=== PATIENT | female | born 1965 | race African-American/Black ===

== ENCOUNTER 2019-12-15 12:54 | Inpatient (IN) | payer MEDICAID, OTHER ==
[~2019-12-15] VITALS: Ht 172.7 cm; Wt 137.0 kg
[2019-12-15] MEDS ORDERED: ACETAMINOPHEN 325MG TABLET PO ONE (15:45)
[2019-12-15] MEDS ORDERED: SODIUM CHLORIDE 0.9% 1,000 ML IV ONE ×2 (16:15→17:00)
[2019-12-15 16:23] LABS: HEMOGLOBIN. 9.1 g/dL (12.0-16.0); MEAN CORPUSCULAR HEMOGLOBIN 25.3 pg (28.0-32.0); MEAN PLATELET VOLUME 8.3 fl (7.4-10.4); PLATELET 473 x1000/uL (130-400); RED CELL DISTRIBUTION WIDTH 14.3 % (11.6-14.6)
[2019-12-15 16:26] LABS: CHLORIDE 89 mEq/L (98-107)
[2019-12-15 16:29] LABS: PARTIAL THROMBOPLASTIN TIME 27.5 sec (23.4-31.0); PROTHROMBIN TIME 10.4 sec (9.6-11.0)
[2019-12-15] MEDS ORDERED: INS NPH/REG HM 70-30 100 UNITS/ML 10ML VIAL (HUMULIN 70-30) SUBCUT ONE (16:45)
[2019-12-15 17:45] LABS: CLARITY URINE CLOUDY (CLEAR); COLOR URINE YELLOW (YELLOW); KETONES URINE TRACE (NEGATIVE); LEUKOCYTE ESTERASE URINE NEGATIVE (NEGATIVE); NITRITE URINE NEGATIVE (NEGATIVE); OCCULT BLOOD URINE NEGATIVE (NEGATIVE); PROTEIN URINE 3+ (NEGATIVE); SPECIFIC GRAVITY URINE 1.021 (1.005-1.030); UROBILINOGEN URINE 0.2 E.U./dL (0.2-1.0)
[2019-12-15 17:47] LABS: NUCLEATED RED BLOOD CELLS 1 /100 WBC
[2019-12-15 17:49] LABS: PLATELET ESTIMATE SLIGHTLY INCREASED
[2019-12-15] MEDS ORDERED: FLUCONAZOLE 100MG TABLET PO ONE (19:00)
[2019-12-15] MEDS ORDERED: CEFTRIAXONE 1 G PREMIX 50 ML IV ONE (19:00)
[2019-12-15] MEDS ORDERED: FLUCONAZOLE 100MG TABLET PO SCH (20:30)
[2019-12-15] MEDS ORDERED: PIPERACILLIN/TAZOBACTAM 2.25 G in DEXTROSE 5% WATER 50 ML IV SCH (23:45)
[2019-12-15] MEDS ORDERED: VANCOMYCIN 1 G PREMIX 200 ML IV SCH (23:45)
[2019-12-15] MEDS ORDERED: CLINDAMYCIN 600MG PREMIX 50 ML IV ONE (23:45)
[2019-12-15] MEDS ORDERED: CLINDAMYCIN 600 MG in DEXTROSE 5% WATER 50 ML IV ONE (23:45)
[2019-12-15] MEDS ORDERED: PIPERACILLIN/TAZ 2.25G PREMIX 50 ML IV ONE (23:45)
[2019-12-16 00:50] VITALS: BP 139/42
[2019-12-16 04:00] VITALS: BP 115/53
[2019-12-16] MEDS ORDERED: HYDR25TA PO (06:05)
[2019-12-16] MEDS ORDERED: INSU100I24 SUBCUT (06:05)
[2019-12-16] MEDS ORDERED: ASPI-1497 PO (06:05)
[2019-12-16] MEDS ORDERED: ATOR20TA65 PO (06:05)
[2019-12-16] MEDS ORDERED: INSU100I32 SUBCUT (06:05)
[2019-12-16] MEDS ORDERED: LISI40TA4 PO (06:05)
[2019-12-16] MEDS ORDERED: ENOXAPARIN 40MG/0.4ML SYR SUBCUT SCH (08:30)
[2019-12-16] MEDS ORDERED: ACETAMINOPHEN 325MG TABLET PO PRN (08:30)
[2019-12-16] MEDS ORDERED: ASPIRIN 81MG EC TABLET PO SCH (08:30)
[2019-12-16] MEDS ORDERED: PIPERACILLIN/TAZ 3.375G PREMIX 50 ML IV SCH (08:30)
[2019-12-16] MEDS ORDERED: SODIUM CHLORIDE 0.9% 1,000 ML IV SCH (08:30)
[2019-12-16] MEDS ORDERED: DEXTROSE 50% WATER 50ML SYRINGE IV PRN (08:45)
[2019-12-16] MEDS: LISINOPRIL 40MG TABLET PO SCH (09:00)
[2019-12-16] MEDS: ENOXAPARIN 30MG/0.3ML SYR SUBCUT SCH ×2 (09:00→23:03)
[2019-12-16] MEDS ORDERED: PIPERACILLIN/TAZOBACTAM 3.375 G in DEXT 5% WATER 100 ML IV SCH (09:00)
[2019-12-16 12:00] VITALS: BP 118/56
[2019-12-16] MEDS ORDERED: MORPHINE SULFATE 2 MG/ML CPJ (NOT FOR IM USE) IV PRN (12:00)
[2019-12-16] MEDS ORDERED: HYDROCODONE/ACETAMINOPHEN 5/325MG TABLET PO PRN (12:00)
[2019-12-16] MEDS: BLOOD SUGAR DIAGNOSTIC STRIP TEST SCH ×3 (12:33→21:00)
[2019-12-16] MEDS: INSULIN LISPRO 100 UNITS/ML SUBCUT SCH ×5 (12:40→23:03)
[2019-12-16] MEDS: DEXT 5%/0.9% NACL 1,000 ML IV SCH (12:48)
[2019-12-16] MEDS ORDERED: LIDOCAINE HCL 1% 20ML VIAL (Pyxis) INJ ONE (13:57)
[2019-12-16] MEDS ORDERED: SODIUM BICARBONATE 4% (2.4MEQ) 5ML VIAL IV ONE (13:58)
[2019-12-16 16:00] VITALS: BP 130/58
[2019-12-16] MEDS: VANCOMYCIN 1 G PREMIX 200 ML IV SCH (16:19)
[2019-12-16 18:17] LABS: HEMATOCRIT. 23.9 % (36.0-48.0); HEMOGLOBIN. 8.2 g/dL (12.0-16.0); MEAN CORPUSCULAR HEMOGLOBIN 25.6 pg (28.0-32.0); MEAN CORPUSCULAR VOLUME 74.2 fL (81.0-99.0); MEAN PLATELET VOLUME 8.2 fl (7.4-10.4); PLATELET 414 x1000/uL (130-400); RED BLOOD CELL COUNT 3.22 mill/uL (4.2-5.4); RED CELL DISTRIBUTION WIDTH 14.2 % (11.6-14.6)
[2019-12-16] MEDS: ONDANSETRON HCL 4MG/2ML INJ IV PRN (20:34)
[2019-12-16] MEDS: ATORVASTATIN CALCIUM 20MG TABLET PO SCH (21:00)
[2019-12-16] MEDS ORDERED: INSULIN GLARGINE UD 100 UNITS/ML SYR SUBCUT SCH (22:00)
[2019-12-17 00:34] VITALS: BP 139/64
[2019-12-17] MEDS: DEXT 5%/0.9% NACL 1,000 ML IV SCH (01:20)
[2019-12-17] MEDS: PIPERACILLIN/TAZOBACTAM 3.375 G in DEXT 5% WATER 100 ML IV SCH ×3 (03:08→12:29)
[2019-12-17] MEDS: ONDANSETRON HCL 4MG/2ML INJ IV PRN (03:15)
[2019-12-17 04:00] VITALS: BP 108/52
[2019-12-17 06:20] LABS: MEAN CORPUSCULAR VOLUME 74.5 fL (81.0-99.0); MEAN PLATELET VOLUME 8.4 fl (7.4-10.4); PLATELET 382 x1000/uL (130-400); RED BLOOD CELL COUNT 2.78 mill/uL (4.2-5.4); RED CELL DISTRIBUTION WIDTH 14.4 % (11.6-14.6)
[2019-12-17] MEDS: BLOOD SUGAR DIAGNOSTIC STRIP TEST SCH ×4 (06:56→21:00)
[2019-12-17 07:40] LABS: HEMATOCRIT. 20.7 % (36.0-48.0)
[2019-12-17] MEDS: INSULIN LISPRO 100 UNITS/ML SUBCUT SCH ×7 (07:40→21:58)
[2019-12-17 08:00] VITALS: BP 130/64
[2019-12-17] MEDS ORDERED: DEXT 5%/0.9% NACL 1,000 ML IV SCH (08:03)
[2019-12-17 08:34] LABS: *BENZODIAZEPINES SCREEN URINE NEGATIVE (NEGATIVE)
[2019-12-17 08:35] LABS: *BARBITURATES SCREEN URINE NEGATIVE (NEGATIVE); *COCAINE SCREEN URINE NEGATIVE (NEGATIVE); CANNABINOID URINE SCREEN NEGATIVE (NEGATIVE); METHADONE URINE SCREEN NEGATIVE (NEGATIVE); OPIATES URINE SCREEN NEGATIVE (NEGATIVE); PHENCYCLIDINE URINE SCREEN NEGATIVE (NEGATIVE)
[2019-12-17 08:36] LABS: *AMPHETAMINES SCREEN URINE NEGATIVE (NEGATIVE)
[2019-12-17] MEDS: LISINOPRIL 40MG TABLET PO SCH (08:36)
[2019-12-17 09:50] LABS: HEMOGLOBIN. 7.2 g/dL (12.0-16.0); MEAN CORPUSCULAR HEMOGLOBIN 25.7 pg (28.0-32.0); MEAN PLATELET VOLUME 8.3 fl (7.4-10.4); PLATELET 432 x1000/uL (130-400); RED BLOOD CELL COUNT 2.81 mill/uL (4.2-5.4); RED CELL DISTRIBUTION WIDTH 14.4 % (11.6-14.6)
[2019-12-17] MEDS: SODIUM CHLORIDE 0.9% 1,000 ML IV SCH ×2 (10:00→22:03)
[2019-12-17] MEDS: AMLODIPINE 5MG TABLET PO SCH ×2 (10:00→12:27)
[2019-12-17 11:18] LABS: TOTAL IRON BINDING CAPACITY 301 ug/dL (250-450)
[2019-12-17 12:00] VITALS: BP 154/75
[2019-12-17 14:06] LABS: PLATELET ESTIMATE NORMAL
[2019-12-17 14:21] LABS: PLATELET ESTIMATE INCREASED
[2019-12-17] MEDS: VANCOMYCIN 1 G PREMIX 200 ML IV SCH (14:37)
[2019-12-17 16:30] VITALS: BP 142/76
[2019-12-17 16:57] LABS: PLATELET ESTIMATE INCREASED
[2019-12-17] MEDS: LOSARTAN POTASSIUM 50 MG TABLET PO SCH (17:57)
[2019-12-17 20:00] VITALS: BP 141/78
[2019-12-17] MEDS: ATORVASTATIN CALCIUM 20MG TABLET PO SCH (21:52)
[2019-12-17] MEDS ORDERED: INSULIN GLARGINE UD 100 UNITS/ML SYR SUBCUT SCH (22:00)
[2019-12-18] VITALS: BP 135/76
[2019-12-18] MEDS: GUAIFENESIN 200MG/10ML SUGAR FREE UDC PO PRN ×2 (00:04→05:11)
[2019-12-18 04:00] VITALS: BP 139/67
[2019-12-18] MEDS: PIPERACILLIN/TAZOBACTAM 3.375 G in DEXT 5% WATER 100 ML IV SCH ×3 (04:01→18:53)
[2019-12-18 05:10] LABS: HIV SCREEN 4G Non Reactive (Non Reactive)
[2019-12-18] MEDS: SODIUM CHLORIDE 0.9% 1,000 ML IV SCH ×2 (06:00→12:41)
[2019-12-18] MEDS: BLOOD SUGAR DIAGNOSTIC STRIP TEST SCH ×4 (06:49→21:00)
[2019-12-18 07:32] LABS: FOLIC ACID (FOLATE) SERUM 9.6 ng/mL (>5.38)
[2019-12-18 08:00] VITALS: BP 135/56
[2019-12-18 08:54] LABS: HEMATOCRIT. 21.3 % (36.0-48.0); HEMOGLOBIN. 7.4 g/dL (12.0-16.0); MEAN CORPUSCULAR HEMOGLOBIN 25.9 pg (28.0-32.0); MEAN CORPUSCULAR VOLUME 74.7 fL (81.0-99.0); MEAN PLATELET VOLUME 8.3 fl (7.4-10.4); PLATELET 445 x1000/uL (130-400); RED BLOOD CELL COUNT 2.85 mill/uL (4.2-5.4); RED CELL DISTRIBUTION WIDTH 14.5 % (11.6-14.6)
[2019-12-18] MEDS: INSULIN LISPRO 100 UNITS/ML SUBCUT SCH ×7 (09:12→21:00)
[2019-12-18] MEDS: LOSARTAN POTASSIUM 50 MG TABLET PO SCH (09:12)
[2019-12-18] MEDS ORDERED: DIATR MEGLU/DIATRIZOATE SOLN 30ML PO SCH (10:45)
[2019-12-18 12:00] VITALS: BP 123/58
[2019-12-18] MEDS: VANCOMYCIN 1 G PREMIX 200 ML IV SCH (13:42)
[2019-12-18 16:00] VITALS: BP 100/50
[2019-12-18 17:27] LABS: PLATELET ESTIMATE INCREASED
[2019-12-18 20:00] VITALS: BP 126/61
[2019-12-18] MEDS: ATORVASTATIN CALCIUM 20MG TABLET PO SCH (21:54)
[2019-12-18] MEDS: INSULIN GLARGINE UD 100 UNITS/ML SYR SUBCUT SCH (22:00)
[2019-12-18] MEDS: PROMETHAZINE/DEXTROMETHORPHAN 6.25-15MG/5ML BOTTLE 120ML PO PRN (22:55)
[2019-12-19] VITALS (11 sets, daily range): BP systolic 99–149; BP diastolic 43–70
[2019-12-19] MEDS: PIPERACILLIN/TAZOBACTAM 3.375 G in DEXT 5% WATER 100 ML IV SCH ×3 (02:27→20:51)
[2019-12-19] MEDS: SODIUM CHLORIDE 0.9% 1,000 ML IV SCH ×3 (02:59→21:31)
[2019-12-19] MEDS: BLOOD SUGAR DIAGNOSTIC STRIP TEST SCH ×4 (07:40→21:00)
[2019-12-19 07:42] LABS: MEAN CORPUSCULAR HEMOGLOBIN 24.9 pg (28.0-32.0); MEAN CORPUSCULAR VOLUME 74.6 fL (81.0-99.0); MEAN PLATELET VOLUME 7.9 fl (7.4-10.4); PLATELET 459 x1000/uL (130-400); RED BLOOD CELL COUNT 2.78 mill/uL (4.2-5.4); RED CELL DISTRIBUTION WIDTH 14.4 % (11.6-14.6)
[2019-12-19] MEDS: INSULIN LISPRO 100 UNITS/ML SUBCUT SCH ×7 (08:10→21:30)
[2019-12-19 08:15] LABS: HEMATOCRIT. 20.8 % (36.0-48.0); HEMOGLOBIN. 6.9 g/dL (12.0-16.0)
[2019-12-19] MEDS: LOSARTAN POTASSIUM 50 MG TABLET PO SCH (08:54)
[2019-12-19] MEDS: AMLODIPINE 5MG TABLET PO SCH (08:54)
[2019-12-19] MEDS: PROMETHAZINE/DEXTROMETHORPHAN 6.25-15MG/5ML BOTTLE 120ML PO PRN ×2 (10:11→17:39)
[2019-12-19 11:09] LABS: MEAN CORPUSCULAR HEMOGLOBIN 24.8 pg (28.0-32.0); MEAN CORPUSCULAR VOLUME 74.4 fL (81.0-99.0); MEAN PLATELET VOLUME 7.4 fl (7.4-10.4); PLATELET 472 x1000/uL (130-400); RED BLOOD CELL COUNT 2.75 mill/uL (4.2-5.4); RED CELL DISTRIBUTION WIDTH 14.4 % (11.6-14.6)
[2019-12-19 11:13] LABS: HEMOGLOBIN. 6.8 g/dL (12.0-16.0)
[2019-12-19 11:14] LABS: HEMATOCRIT. 20.5 % (36.0-48.0)
[2019-12-19] MEDS: VANCOMYCIN 1 G PREMIX 200 ML IV SCH (15:07)
[2019-12-19] MEDS ORDERED: FUROSEMIDE 20MG/2ML VIAL IVP NR (15:30)
[2019-12-19 16:47] LABS: PLATELET ESTIMATE INCREASED
[2019-12-19 17:04] LABS: PLATELET ESTIMATE INCREASED
[2019-12-19] MEDS: GUAIFENESIN 200MG/10ML SUGAR FREE UDC PO PRN (20:51)
[2019-12-19] MEDS: ATORVASTATIN CALCIUM 20MG TABLET PO SCH (20:51)
[2019-12-19] MEDS: INSULIN GLARGINE UD 100 UNITS/ML SYR SUBCUT SCH (21:41)
[2019-12-20] VITALS: BP 122/69
[2019-12-20] MEDS: PIPERACILLIN/TAZOBACTAM 3.375 G in DEXT 5% WATER 100 ML IV SCH (03:57)
[2019-12-20 04:00] VITALS: BP 129/61
[2019-12-20] MEDS: BLOOD SUGAR DIAGNOSTIC STRIP TEST SCH ×4 (07:17→21:55)
[2019-12-20 07:52] VITALS: BP 155/67
[2019-12-20] MEDS ORDERED: KCL 20MEQ/100ML PREMIX 100 ML IV NR (08:00)
[2019-12-20 08:11] LABS: HEMATOCRIT. 21.6 % (36.0-48.0); HEMOGLOBIN. 7.4 g/dL (12.0-16.0); MEAN CORPUSCULAR HEMOGLOBIN 25.3 pg (28.0-32.0); MEAN CORPUSCULAR VOLUME 74.3 fL (81.0-99.0); MEAN PLATELET VOLUME 7.2 fl (7.4-10.4); PLATELET 539 x1000/uL (130-400); RED BLOOD CELL COUNT 2.91 mill/uL (4.2-5.4); RED CELL DISTRIBUTION WIDTH 14.6 % (11.6-14.6)
[2019-12-20] MEDS: LOSARTAN POTASSIUM 50 MG TABLET PO SCH (08:23)
[2019-12-20] MEDS: AMLODIPINE 5MG TABLET PO SCH (08:23)
[2019-12-20] MEDS: SODIUM CHLORIDE 0.9% 1,000 ML IV SCH ×2 (08:23→18:00)
[2019-12-20] MEDS: INSULIN LISPRO 100 UNITS/ML SUBCUT SCH ×7 (08:25→21:00)
[2019-12-20] MEDS ORDERED: PROPOFOL 200MG/20ML VIAL IV ONE (09:34)
[2019-12-20] MEDS ORDERED: FENTANYL CITRATE/PF 50MCG/ML 2ML VIAL ONE (09:34)
[2019-12-20] MEDS ORDERED: GLYCOPYRROLATE 0.2 MG/ML 2ML VIAL ONE (09:34)
[2019-12-20] MEDS ORDERED: MIDAZOLAM HCL 2 MG/2 ML VIAL ONE ×2 (09:34→09:40)
[2019-12-20] MEDS ORDERED: SUCCINYLCHOLINE CHLORIDE 200MG/10ML IV ONE (09:35)
[2019-12-20] MEDS ORDERED: ONDANSETRON HCL 4MG/2ML INJ ONE (09:35)
[2019-12-20] MEDS ORDERED: METOCLOPRAMIDE HCL 10MG/2ML VIAL ONE (09:35)
[2019-12-20] MEDS ORDERED: LIDOCAINE HCL/PF 1% 10 MG/ML 5ML VIAL ONE (09:35)
[2019-12-20] MEDS ORDERED: BUPIVACAINE HCL 0.5% (5MG/ML) 50ML ONE (09:37)
[2019-12-20] MEDS ORDERED: BACITRACIN 50,000 UNITS/VIAL ONE (09:37)
[2019-12-20] MEDS ORDERED: NORMAL SALINE 0.9% 10 ML SYR ONE (09:37)
[2019-12-20] MEDS ORDERED: HYDROCODONE/ACETAMINOPHEN 5/325MG TABLET PO PRN ×2 (10:15)
[2019-12-20] MEDS ORDERED: MORPHINE SULFATE 4 MG/ML CPJ (NOT FOR IM USE) IV PRN ×2 (10:15)
[2019-12-20 10:32] LABS: PLATELET ESTIMATE 1
[2019-12-20] MEDS: MEROPENEM 1,000 MG in SODIUM CHLORIDE 0.9% 100 ML IV SCH ×2 (14:03→21:54)
[2019-12-20] MEDS: VANCOMYCIN 1 G PREMIX 200 ML IV SCH (15:10)
[2019-12-20 16:00] VITALS: BP_SYST 128; BP_SYST 146; BP_DIAS 58; BP_DIAS 79
[2019-12-20] MEDS: DEXT 5%/0.45% NACL KCL 20MEQ/L 1,000 ML IV SCH ×2 (16:06→21:00)
[2019-12-20] MEDS: SODIUM CHLORIDE 0.9% INJ 3ML FLUSH IVF SCH ×2 (18:29→21:55)
[2019-12-20 20:00] VITALS: BP 135/62
[2019-12-20] MEDS: PROMETHAZINE/DEXTROMETHORPHAN 6.25-15MG/5ML BOTTLE 120ML PO PRN (21:54)
[2019-12-20] MEDS: ATORVASTATIN CALCIUM 20MG TABLET PO SCH (21:54)
[2019-12-20] MEDS: INSULIN GLARGINE UD 100 UNITS/ML SYR SUBCUT SCH (21:56)
[2019-12-21] VITALS: BP 147/70
[2019-12-21] MEDS: IPRATROPIUM/ALBUTEROL 0.5-3(2.5)MG/3ML NEB HHN SCH ×4 (01:53→20:43)
[2019-12-21] MEDS: GUAIFENESIN 200MG/10ML SUGAR FREE UDC PO PRN ×2 (02:27→22:59)
[2019-12-21 04:00] VITALS: BP 130/57
[2019-12-21] MEDS: SODIUM CHLORIDE 0.9% 1,000 ML IV SCH ×2 (04:00→17:26)
[2019-12-21] MEDS: SODIUM CHLORIDE 0.9% INJ 3ML FLUSH IVF SCH ×3 (05:37→22:00)
[2019-12-21] MEDS: BLOOD SUGAR DIAGNOSTIC STRIP TEST SCH ×4 (06:46→21:31)
[2019-12-21] MEDS: DEXT 5%/0.45% NACL KCL 20MEQ/L 1,000 ML IV SCH ×2 (06:46→17:25)
[2019-12-21] MEDS: INSULIN LISPRO 100 UNITS/ML SUBCUT SCH ×7 (06:49→21:00)
[2019-12-21] MEDS: PROMETHAZINE/DEXTROMETHORPHAN 6.25-15MG/5ML BOTTLE 120ML PO PRN (06:59)
[2019-12-21 08:00] VITALS: BP_SYST 128; BP_SYST 136; BP_DIAS 56; BP_DIAS 63
[2019-12-21 08:12] LABS: MEAN CORPUSCULAR HEMOGLOBIN 25.4 pg (28.0-32.0); MEAN CORPUSCULAR VOLUME 75.6 fL (81.0-99.0); MEAN PLATELET VOLUME 7.6 fl (7.4-10.4); PLATELET 516 x1000/uL (130-400); RED BLOOD CELL COUNT 2.76 mill/uL (4.2-5.4); RED CELL DISTRIBUTION WIDTH 14.9 % (11.6-14.6)
[2019-12-21 08:37] LABS: HEMATOCRIT. 20.9 % (36.0-48.0)
[2019-12-21] MEDS: AMLODIPINE 5MG TABLET PO SCH (09:16)
[2019-12-21] MEDS: LOSARTAN POTASSIUM 50 MG TABLET PO SCH (09:17)
[2019-12-21] MEDS: MEROPENEM 1,000 MG in SODIUM CHLORIDE 0.9% 100 ML IV SCH ×2 (09:17→23:02)
[2019-12-21 12:00] VITALS: BP 144/77
[2019-12-21] MEDS: IRON SUCROSE COMPLEX 100 MG/5 ML ML IV SCH (13:33)
[2019-12-21 16:00] VITALS: BP 134/62
[2019-12-21] MEDS: BENZONATATE 100MG CAPSULE PO PRN (16:22)
[2019-12-21 16:58] LABS: PLATELET ESTIMATE INCREASED
[2019-12-21] MEDS: VANCOMYCIN 750 MG PREMIX 150 ML IV SCH (17:24)
[2019-12-21] MEDS: ATORVASTATIN CALCIUM 20MG TABLET PO SCH (22:59)
[2019-12-21] MEDS: INSULIN GLARGINE UD 100 UNITS/ML SYR SUBCUT SCH (23:00)
[2019-12-22] VITALS (7 sets, daily range): BP systolic 129–164; BP diastolic 51–85
[2019-12-22] MEDS: BENZONATATE 100MG CAPSULE PO PRN ×2 (01:21→09:42)
[2019-12-22] MEDS: IPRATROPIUM/ALBUTEROL 0.5-3(2.5)MG/3ML NEB HHN SCH ×4 (02:22→20:29)
[2019-12-22] MEDS: PROMETHAZINE/DEXTROMETHORPHAN 6.25-15MG/5ML BOTTLE 120ML PO PRN ×2 (02:55→16:08)
[2019-12-22] MEDS: DEXT 5%/0.45% NACL KCL 20MEQ/L 1,000 ML IV SCH ×3 (03:00→22:30)
[2019-12-22] MEDS: SODIUM CHLORIDE 0.9% INJ 3ML FLUSH IVF SCH ×3 (06:00→20:08)
[2019-12-22] MEDS: BLOOD SUGAR DIAGNOSTIC STRIP TEST SCH ×4 (06:40→20:08)
[2019-12-22 06:48] LABS: HEMATOCRIT. 21.3 % (36.0-48.0); HEMOGLOBIN. 7.1 g/dL (12.0-16.0); MEAN CORPUSCULAR HEMOGLOBIN 24.9 pg (28.0-32.0); MEAN CORPUSCULAR VOLUME 74.5 fL (81.0-99.0); MEAN PLATELET VOLUME 7.4 fl (7.4-10.4); PLATELET 617 x1000/uL (130-400); RED BLOOD CELL COUNT 2.87 mill/uL (4.2-5.4); RED CELL DISTRIBUTION WIDTH 14.5 % (11.6-14.6)
[2019-12-22] MEDS: ONDANSETRON HCL 4MG/2ML INJ IV PRN (06:53)
[2019-12-22] MEDS: LOSARTAN POTASSIUM 50 MG TABLET PO SCH (08:57)
[2019-12-22] MEDS: AMLODIPINE 5MG TABLET PO SCH (08:58)
[2019-12-22] MEDS: INSULIN LISPRO 100 UNITS/ML SUBCUT SCH ×7 (08:58→20:08)
[2019-12-22] MEDS: MEROPENEM 1,000 MG in SODIUM CHLORIDE 0.9% 100 ML IV SCH ×2 (08:58→20:07)
[2019-12-22] MEDS: IRON SUCROSE COMPLEX 100 MG/5 ML ML IV SCH (09:01)
[2019-12-22] MEDS: SODIUM CHLORIDE 0.9% 1,000 ML IV SCH ×3 (10:00→20:07)
[2019-12-22] MEDS: VANCOMYCIN 750 MG PREMIX 150 ML IV SCH (16:46)
[2019-12-22] MEDS: ATORVASTATIN CALCIUM 20MG TABLET PO SCH (20:08)
[2019-12-22] MEDS: INSULIN GLARGINE UD 100 UNITS/ML SYR SUBCUT SCH (22:29)
[2019-12-22 23:12] LABS: PLATELET ESTIMATE INCREASED
[2019-12-23] VITALS (11 sets, daily range): BP systolic 129–167; BP diastolic 54–70
[2019-12-23] MEDS: IPRATROPIUM/ALBUTEROL 0.5-3(2.5)MG/3ML NEB HHN SCH ×2 (02:40→14:25)
[2019-12-23] MEDS: BENZONATATE 100MG CAPSULE PO PRN ×2 (02:54→15:45)
[2019-12-23] MEDS: SODIUM CHLORIDE 0.9% 1,000 ML IV SCH ×2 (05:11→15:30)
[2019-12-23] MEDS: SODIUM CHLORIDE 0.9% INJ 3ML FLUSH IVF SCH ×3 (05:17→21:52)
[2019-12-23 06:30] LABS: MEAN CORPUSCULAR VOLUME 74.8 fL (81.0-99.0); MEAN PLATELET VOLUME 7.3 fl (7.4-10.4); PLATELET 556 x1000/uL (130-400); RED BLOOD CELL COUNT 2.56 mill/uL (4.2-5.4); RED CELL DISTRIBUTION WIDTH 14.8 % (11.6-14.6)
[2019-12-23 06:57] LABS: HEMATOCRIT. 19.1 % (36.0-48.0); HEMOGLOBIN. 6.4 g/dL (12.0-16.0)
[2019-12-23] MEDS: INSULIN LISPRO 100 UNITS/ML SUBCUT SCH ×7 (07:40→21:00)
[2019-12-23] MEDS ORDERED: ALBUTEROL (0.083%) 2.5MG/3ML NEB HHN NR (07:45)
[2019-12-23] MEDS: BLOOD SUGAR DIAGNOSTIC STRIP TEST SCH ×4 (08:00→21:37)
[2019-12-23] MEDS: MEROPENEM 1,000 MG in SODIUM CHLORIDE 0.9% 100 ML IV SCH ×2 (08:25→21:34)
[2019-12-23] MEDS: IRON SUCROSE COMPLEX 100 MG/5 ML ML IV SCH (08:26)
[2019-12-23] MEDS: LOSARTAN POTASSIUM 50 MG TABLET PO SCH (08:27)
[2019-12-23] MEDS: CLONIDINE 0.1MG TABLET PO PRN ×2 (08:27→21:58)
[2019-12-23] MEDS: AMLODIPINE 5MG TABLET PO SCH (08:27)
[2019-12-23] MEDS: ONDANSETRON HCL 4MG/2ML INJ IV PRN (11:59)
[2019-12-23] MEDS: PROMETHAZINE/DEXTROMETHORPHAN 6.25-15MG/5ML BOTTLE 120ML PO PRN (15:29)
[2019-12-23] MEDS ORDERED: SODIUM POLYSTYRENE SULFONATE 15 G/60 ML BOT PO NR (16:30)
[2019-12-23 16:59] LABS: PROTHROMBIN TIME 10.8 sec (9.6-11.0)
[2019-12-23 18:50] LABS: HEMATOCRIT 22.2 % (36.0-48.0); HEMOGLOBIN 7.5 g/dL (12.0-16.0)
[2019-12-23] MEDS: GUAIFENESIN 200MG/10ML SUGAR FREE UDC PO PRN (18:55)
[2019-12-23] MEDS ORDERED: AMLODIPINE 5MG TABLET PO SCH (20:45)
[2019-12-23] MEDS: ATORVASTATIN CALCIUM 20MG TABLET PO SCH (21:35)
[2019-12-23] MEDS: INSULIN GLARGINE UD 100 UNITS/ML SYR SUBCUT SCH (21:36)
[2019-12-23 22:30] LABS: PLATELET ESTIMATE INCREASED
[2019-12-24] VITALS: BP 145/59
[2019-12-24] MEDS: SODIUM CHLORIDE 0.9% 1,000 ML IV SCH ×2 (01:41→12:09)
[2019-12-24 04:00] VITALS: BP_SYST 157; BP_SYST 177; BP_DIAS 77
[2019-12-24] MEDS: CLONIDINE 0.1MG TABLET PO PRN ×2 (05:44→19:04)
[2019-12-24] MEDS: GUAIFENESIN 200MG/10ML SUGAR FREE UDC PO PRN ×3 (05:50→17:21)
[2019-12-24] MEDS: SODIUM CHLORIDE 0.9% INJ 3ML FLUSH IVF SCH ×3 (05:50→21:16)
[2019-12-24] MEDS: BLOOD SUGAR DIAGNOSTIC STRIP TEST SCH ×4 (06:04→21:15)
[2019-12-24 07:18] LABS: HEMATOCRIT. 22.8 % (36.0-48.0); HEMOGLOBIN. 7.6 g/dL (12.0-16.0); MEAN CORPUSCULAR HEMOGLOBIN 25.1 pg (28.0-32.0); MEAN CORPUSCULAR VOLUME 75.8 fL (81.0-99.0); MEAN PLATELET VOLUME 6.8 fl (7.4-10.4); PLATELET 645 x1000/uL (130-400); RED BLOOD CELL COUNT 3.01 mill/uL (4.2-5.4); RED CELL DISTRIBUTION WIDTH 15.4 % (11.6-14.6)
[2019-12-24] MEDS: INSULIN LISPRO 100 UNITS/ML SUBCUT SCH ×7 (07:40→21:00)
[2019-12-24 08:00] VITALS: BP 147/65
[2019-12-24] MEDS: IPRATROPIUM/ALBUTEROL 0.5-3(2.5)MG/3ML NEB HHN SCH ×3 (08:54→20:48)
[2019-12-24] MEDS: IRON SUCROSE COMPLEX 100 MG/5 ML ML IV SCH (09:28)
[2019-12-24] MEDS: MEROPENEM 1,000 MG in SODIUM CHLORIDE 0.9% 100 ML IV SCH ×2 (09:29→21:15)
[2019-12-24] MEDS: AMLODIPINE 5MG TABLET PO SCH (09:29)
[2019-12-24 10:56] LABS: PLATELET ESTIMATE INCREASED
[2019-12-24] MEDS ORDERED: LACTULOSE 20G/30ML UDC PO PRN (14:15)
[2019-12-24] MEDS ORDERED: FUROSEMIDE 40MG/4ML VIAL IVP NR (15:00)
[2019-12-24 18:45] VITALS: BP 166/79
[2019-12-24 20:00] VITALS: BP 161/67
[2019-12-24] MEDS: ATORVASTATIN CALCIUM 20MG TABLET PO SCH (21:15)
[2019-12-24] MEDS: INSULIN GLARGINE UD 100 UNITS/ML SYR SUBCUT SCH (21:31)
[2019-12-25] VITALS (7 sets, daily range): BP systolic 139–178; BP diastolic 60–90
[2019-12-25] MEDS: GUAIFENESIN 200MG/10ML SUGAR FREE UDC PO PRN ×4 (00:35→18:40)
[2019-12-25] MEDS: IPRATROPIUM/ALBUTEROL 0.5-3(2.5)MG/3ML NEB HHN SCH ×4 (02:00→20:12)
[2019-12-25] MEDS: SODIUM CHLORIDE 0.9% INJ 3ML FLUSH IVF SCH ×3 (06:09→21:43)
[2019-12-25] MEDS: BLOOD SUGAR DIAGNOSTIC STRIP TEST SCH ×4 (07:31→21:42)
[2019-12-25] MEDS: INSULIN LISPRO 100 UNITS/ML SUBCUT SCH ×7 (07:32→21:00)
[2019-12-25 07:52] LABS: HEMATOCRIT. 22.8 % (36.0-48.0); HEMOGLOBIN. 7.6 g/dL (12.0-16.0); MEAN CORPUSCULAR HEMOGLOBIN 25.6 pg (28.0-32.0); MEAN CORPUSCULAR VOLUME 76.4 fL (81.0-99.0); MEAN PLATELET VOLUME 6.7 fl (7.4-10.4); PLATELET 672 x1000/uL (130-400); RED BLOOD CELL COUNT 2.99 mill/uL (4.2-5.4); RED CELL DISTRIBUTION WIDTH 15.6 % (11.6-14.6)
[2019-12-25] MEDS: MEROPENEM 1,000 MG in SODIUM CHLORIDE 0.9% 100 ML IV SCH ×2 (09:31→21:20)
[2019-12-25] MEDS: AMLODIPINE 5MG TABLET PO SCH (09:32)
[2019-12-25] MEDS ORDERED: FUROSEMIDE 40MG/4ML VIAL IVP SCH (10:00)
[2019-12-25] MEDS: IRON SUCROSE COMPLEX 100 MG/5 ML ML IV SCH (10:30)
[2019-12-25] MEDS: FUROSEMIDE 40MG/4ML VIAL IVP SCH (17:44)
[2019-12-25 17:56] LABS: PLATELET ESTIMATE INCREASED
[2019-12-25] MEDS: GUAIFENESIN 600MG ER TABLET PO SCH (21:20)
[2019-12-25] MEDS: ATORVASTATIN CALCIUM 20MG TABLET PO SCH (21:21)
[2019-12-25] MEDS: CLONIDINE 0.1MG TABLET PO PRN (21:22)
[2019-12-25] MEDS: INSULIN GLARGINE UD 100 UNITS/ML SYR SUBCUT SCH (21:51)
[2019-12-26] VITALS (7 sets, daily range): BP systolic 118–188; BP diastolic 60–95
[2019-12-26] MEDS: IPRATROPIUM/ALBUTEROL 0.5-3(2.5)MG/3ML NEB HHN SCH ×3 (01:40→15:00)
[2019-12-26] MEDS: GUAIFENESIN 200MG/10ML SUGAR FREE UDC PO PRN ×2 (03:14→09:49)
[2019-12-26] MEDS: SODIUM CHLORIDE 0.9% INJ 3ML FLUSH IVF SCH ×2 (05:19→17:57)
[2019-12-26] MEDS: BLOOD SUGAR DIAGNOSTIC STRIP TEST SCH ×3 (05:57→18:30)
[2019-12-26] MEDS: INSULIN LISPRO 100 UNITS/ML SUBCUT SCH ×6 (07:27→18:10)
[2019-12-26] MEDS: AMLODIPINE 5MG TABLET PO SCH (09:16)
[2019-12-26] MEDS: GUAIFENESIN 600MG ER TABLET PO SCH (09:16)
[2019-12-26] MEDS: FUROSEMIDE 40MG/4ML VIAL IVP SCH ×2 (09:20→17:47)
[2019-12-26] MEDS: MEROPENEM 1,000 MG in SODIUM CHLORIDE 0.9% 100 ML IV SCH (09:32)
[2019-12-26] MEDS: CLONIDINE 0.1MG TABLET PO PRN (12:56)
[2019-12-26 15:05] LABS: HEMATOCRIT. 23.4 % (36.0-48.0); MEAN CORPUSCULAR HEMOGLOBIN 26.1 pg (28.0-32.0); MEAN CORPUSCULAR VOLUME 76.1 fL (81.0-99.0); MEAN PLATELET VOLUME 6.6 fl (7.4-10.4); PLATELET 676 x1000/uL (130-400); RED BLOOD CELL COUNT 3.08 mill/uL (4.2-5.4); RED CELL DISTRIBUTION WIDTH 15.5 % (11.6-14.6)
[2019-12-26 16:49] LABS: PLATELET ESTIMATE INCREASED
[2019-12-26] MEDS ORDERED: AMLODIPINE 5MG TABLET PO SCH (17:00)
[2019-12-26] MEDS ORDERED: HYDRALAZINE HCL 50MG TABLET PO SCH (21:00)
== END 2019-12-26 20:55 | disposition home health service (06) | DRG 710 ==
LOC: ER 12:54 → 7WST 19:38 → EDBEDREQTM 19:40 → EDBEDREQ 19:40 → ENRESERV 23:04
PROVIDERS: ADMIT Internal Medicine; ATTEND Internal Medicine
PROC: 30233N1 Transfusion of Nonautologous Red Blood Cells into Peripheral Vein, Percutaneous Approach (ICD-10-PCS; 2019-12-19)
PROC: 0J9M0ZZ Drainage of Left Upper Leg Subcutaneous Tissue and Fascia, Open Approach (ICD-10-PCS; principal; 2019-12-20)
DX: A41.9 Sepsis, unspecified organism (principal); N17.0 Acute kidney failure with tubular necrosis; M72.6 Necrotizing fasciitis; I50.31 Acute diastolic (congestive) heart failure; J84.9 Interstitial pulmonary disease, unspecified; I07.1 Rheumatic tricuspid insufficiency; N18.3 Chronic kidney disease, stage 3 (moderate); I27.20 Pulmonary hypertension, unspecified; E11.21 Type 2 diabetes mellitus with diabetic nephropathy; E66.01 Morbid (severe) obesity due to excess calories; E11.42 Type 2 diabetes mellitus with diabetic polyneuropathy; E11.65 Type 2 diabetes mellitus with hyperglycemia; D64.9 Anemia, unspecified; I13.0 Hypertensive heart and chronic kidney disease with heart failure and stage 1 through stage 4 chronic kidney disease, or unspecified chronic kidney disease; E87.1 Hypo-osmolality and hyponatremia; L02.416 Cutaneous abscess of left lower limb; N39.0 Urinary tract infection, site not specified; D50.9 Iron deficiency anemia, unspecified; E11.22 Type 2 diabetes mellitus with diabetic chronic kidney disease; Z68.42 Body mass index [BMI] 45.0-49.9, adult; Z79.899 Other long term (current) drug therapy; Z82.49 Family history of ischemic heart disease and other diseases of the circulatory system; Z91.14 Patient's other noncompliance with medication regimen; Z83.3 Family history of diabetes mellitus; Z91.19 Patient's noncompliance with other medical treatment and regimen
CPT/HCPCS: 10030; 36415; 71045; 72192; 73700; 74176; 76770; 78582; 80048; 80053; 80061; 80202; 80305; 81003; 82270; 82607; 82728; 82746; 82962; 83036; 83540; 83550; 83605; 83880; 84132; 84145; 84484; 85014; 85018; 85025; 85049; 85384; 85651; 86140; 86141; 86850; 86900; 86920; 87070; 87075; 87077; 87186; 87389; 87804; 93005; 93306; 93970; 93971; 94640; 96365; 97110; 97162; 97166; 99285; A9558; C1729; J0330; J0696; J1650; J1815; J1940; J2185; J2250; J2405; J2543; J2704; J2765; J3010; J3370; J3480; J3490; J7030; J7042; J7050; J7060; P9021

== ENCOUNTER 2020-02-05 17:56 | Inpatient (IN) | payer OTHER ==
[~2020-02-05] VITALS: Ht 172.7 cm; Wt 119.7 kg
[~2020-02-05 17:56] MED LIST: ASPI-1497 PO; ATOR20TA65 PO; HYDR25TA PO; INSU100I24 SUBCUT; INSU100I32 SUBCUT; LISI40TA4 PO
[2020-02-05] MEDS ORDERED: SODIUM CHLORIDE 0.9% 500 ML IV ONE ×2 (18:15→20:15)
[2020-02-05] MEDS ORDERED: SODIUM CHLORIDE 0.9% 1,000 ML IV ONE ×2 (18:15→20:15)
[2020-02-05 19:05] LABS: CHLORIDE 88 mEq/L (98-107)
[2020-02-05 19:12] LABS: HEMATOCRIT. 31.3 % (36.0-48.0); HEMOGLOBIN. 10.6 g/dL (12.0-16.0); MEAN CORPUSCULAR HEMOGLOBIN 25.5 pg (28.0-32.0); MEAN CORPUSCULAR VOLUME 75.1 fL (81.0-99.0); MEAN PLATELET VOLUME 8.3 fl (7.4-10.4); PLATELET 440 x1000/uL (130-400); RED BLOOD CELL COUNT 4.17 mill/uL (4.2-5.4); RED CELL DISTRIBUTION WIDTH 16.9 % (11.6-14.6)
[2020-02-05 19:41] LABS: PLATELET ESTIMATE SLIGHTLY INCREASED
[2020-02-05] MEDS ORDERED: VANCOMYCIN 1 G PREMIX 200 ML IV ONE (21:15)
[2020-02-05] MEDS ORDERED: PIPERACILLIN/TAZ 3.375G PREMIX 50 ML IV ONE (21:15)
[2020-02-05] MEDS ORDERED: ACETAMINOPHEN 325MG TABLET PO PRN (23:30)
[2020-02-05] MEDS ORDERED: LORAZEPAM 2MG/ML CPJ IV PRN (23:30)
[2020-02-05] MEDS ORDERED: CLONIDINE 0.1MG TABLET PO PRN (23:30)
[2020-02-05] MEDS ORDERED: DIPHENHYDRAMINE 50MG/ML VIAL IV PRN (23:30)
[2020-02-05] MEDS ORDERED: DOCUSATE SODIUM 100MG CAPSULE PO PRN (23:30)
[2020-02-05] MEDS ORDERED: ONDANSETRON HCL 4MG/2ML INJ IV PRN (23:30)
[2020-02-05] MEDS ORDERED: MAGNESIUM/ALUMINUM HYDROXIDE/SIMETHICONE 30ML UDC PO PRN (23:30)
[2020-02-05] MEDS ORDERED: HYDROCODONE/ACETAMINOPHEN 5/325MG TABLET PO PRN (23:30)
[2020-02-05] MEDS ORDERED: NA PHOS,M-B/NA PHOS,DI-BA ENEMA 118ML PR PRN (23:30)
[2020-02-05] MEDS ORDERED: MORPHINE SULFATE 2 MG/ML CPJ (NOT FOR IM USE) IV PRN (23:30)
[2020-02-05] MEDS ORDERED: GUAIFENESIN 200MG/10ML SUGAR FREE UDC PO PRN (23:30)
[2020-02-05] MEDS ORDERED: IPRATROPIUM/ALBUTEROL 0.5-3(2.5)MG/3ML NEB NEB PRN (23:30)
[2020-02-06] MEDS: SODIUM CHLORIDE 0.9% 1,000 ML IV SCH (01:18)
[2020-02-06] MEDS: INSULIN LISPRO (HIGH DOSE) 100 UNITS/ML SUBCUT SCH ×3 (01:28→22:27)
[2020-02-06] MEDS ORDERED: DEXTROSE 50% WATER 50ML SYRINGE IV PRN (01:30)
[2020-02-06 05:19] LABS: HEMATOCRIT. 27.8 % (36.0-48.0); HEMOGLOBIN. 9.3 g/dL (12.0-16.0); MEAN CORPUSCULAR HEMOGLOBIN 25.4 pg (28.0-32.0); MEAN CORPUSCULAR VOLUME 75.7 fL (81.0-99.0); MEAN PLATELET VOLUME 8.1 fl (7.4-10.4); PLATELET 382 x1000/uL (130-400); RED BLOOD CELL COUNT 3.67 mill/uL (4.2-5.4); RED CELL DISTRIBUTION WIDTH 16.8 % (11.6-14.6)
[2020-02-06 05:23] LABS: CHLORIDE 98 mEq/L (98-107)
[2020-02-06 05:30] LABS: LDL CHOLESTEROL 39 mg/dL (5-100)
[2020-02-06 05:32] LABS: HDL CHOLESTEROL 63 mg/dL (40-59)
[2020-02-06 05:38] LABS: T4 FREE 1.46 ng/dL (0.76-1.46)
[2020-02-06 05:47] LABS: PLATELET ESTIMATE NORMAL
[2020-02-06] MEDS ORDERED: PIPERACILLIN/TAZOBACTAM 2.25 G in DEXTROSE 5% WATER 50 ML IV NR (06:00)
[2020-02-06] MEDS ORDERED: PIPERACILLIN/TAZ 3.375G PREMIX 50 ML IV SCH (14:00)
[2020-02-06 16:00] VITALS: BP 142/54
[2020-02-06] MEDS: BLOOD SUGAR DIAGNOSTIC STRIP TEST SCH ×2 (16:31→21:00)
[2020-02-06] MEDS: ENOXAPARIN 40MG/0.4ML SYR SUBCUT SCH (17:25)
[2020-02-06] MEDS: PIPERACILLIN/TAZOBACTAM 2.25 G in DEXTROSE 5% WATER 50 ML IV SCH (17:26)
[2020-02-06] MEDS: ASPIRIN 81MG EC TABLET PO SCH (17:30)
[2020-02-06 20:00] VITALS: BP_SYST 123; BP_SYST 128; BP_DIAS 68
[2020-02-07] VITALS (7 sets, daily range): BP systolic 114–161; BP diastolic 55–77
[2020-02-07] MEDS: PIPERACILLIN/TAZOBACTAM 2.25 G in DEXTROSE 5% WATER 50 ML IV SCH ×3 (01:39→17:11)
[2020-02-07] MEDS: BLOOD SUGAR DIAGNOSTIC STRIP TEST SCH ×4 (06:55→20:09)
[2020-02-07] MEDS: INSULIN LISPRO (HIGH DOSE) 100 UNITS/ML SUBCUT SCH ×4 (07:02→20:46)
[2020-02-07 08:37] LABS: CLARITY URINE CLEAR (CLEAR); COLOR URINE YELLOW (YELLOW); KETONES URINE NEGATIVE (NEGATIVE); LEUKOCYTE ESTERASE URINE 2+ (NEGATIVE); NITRITE URINE NEGATIVE (NEGATIVE); OCCULT BLOOD URINE 1+ (NEGATIVE); PH URINE 5.5 (4.5-8.0); PROTEIN URINE 2+ (NEGATIVE); SPECIFIC GRAVITY URINE 1.016 (1.005-1.030)
[2020-02-07] MEDS: ASPIRIN 81MG EC TABLET PO SCH (08:47)
[2020-02-07 10:32] LABS: HEMATOCRIT. 28.3 % (36.0-48.0); HEMOGLOBIN. 9.5 g/dL (12.0-16.0); MEAN CORPUSCULAR HEMOGLOBIN 25.5 pg (28.0-32.0); MEAN CORPUSCULAR VOLUME 75.7 fL (81.0-99.0); MEAN PLATELET VOLUME 7.8 fl (7.4-10.4); PLATELET 360 x1000/uL (130-400); RED BLOOD CELL COUNT 3.74 mill/uL (4.2-5.4); RED CELL DISTRIBUTION WIDTH 16.7 % (11.6-14.6)
[2020-02-07 11:53] LABS: PLATELET ESTIMATE NORMAL
[2020-02-07] MEDS: GUAIFENESIN 600MG ER TABLET PO SCH ×2 (14:51→20:45)
[2020-02-07 16:29] LABS: CREATINE KINASE 37 IU/L (26-192)
[2020-02-07] MEDS: ENOXAPARIN 40MG/0.4ML SYR SUBCUT SCH (16:41)
[2020-02-07] MEDS: SODIUM CHLORIDE 0.9% 1,000 ML IV SCH ×2 (17:10→21:06)
[2020-02-08] VITALS: BP 143/70
[2020-02-08] MEDS: PIPERACILLIN/TAZOBACTAM 2.25 G in DEXTROSE 5% WATER 50 ML IV SCH ×3 (01:36→18:30)
[2020-02-08 04:00] VITALS: BP 146/55
[2020-02-08] MEDS: INSULIN LISPRO (HIGH DOSE) 100 UNITS/ML SUBCUT SCH ×4 (06:42→21:12)
[2020-02-08] MEDS: BLOOD SUGAR DIAGNOSTIC STRIP TEST SCH ×4 (06:48→20:58)
[2020-02-08 07:46] LABS: HEMATOCRIT. 26.2 % (36.0-48.0); HEMOGLOBIN. 8.7 g/dL (12.0-16.0); MEAN CORPUSCULAR HEMOGLOBIN 25.1 pg (28.0-32.0); MEAN CORPUSCULAR VOLUME 75.4 fL (81.0-99.0); MEAN PLATELET VOLUME 7.8 fl (7.4-10.4); PLATELET 333 x1000/uL (130-400); RED BLOOD CELL COUNT 3.48 mill/uL (4.2-5.4); RED CELL DISTRIBUTION WIDTH 17.1 % (11.6-14.6)
[2020-02-08 08:00] VITALS: BP 139/62
[2020-02-08] MEDS: ASPIRIN 81MG EC TABLET PO SCH (10:02)
[2020-02-08] MEDS: GUAIFENESIN 600MG ER TABLET PO SCH ×2 (10:02→20:58)
[2020-02-08 12:00] VITALS: BP 144/58
[2020-02-08] MEDS ORDERED: POTASSIUM CHLORIDE 20MEQ TABLET SR PO NR (12:00)
[2020-02-08 13:33] LABS: PLATELET ESTIMATE NORMAL
[2020-02-08 16:00] VITALS: BP 148/78
[2020-02-08] MEDS: ENOXAPARIN 40MG/0.4ML SYR SUBCUT SCH (17:07)
[2020-02-08 20:00] VITALS: BP 151/86
[2020-02-09] VITALS: BP 141/57
[2020-02-09] MEDS: PIPERACILLIN/TAZOBACTAM 3.375 G in DEXT 5% WATER 100 ML IV SCH ×4 (00:59→17:19)
[2020-02-09 04:00] VITALS: BP 150/63
[2020-02-09] MEDS: BLOOD SUGAR DIAGNOSTIC STRIP TEST SCH ×4 (05:38→21:26)
[2020-02-09] MEDS: INSULIN LISPRO (HIGH DOSE) 100 UNITS/ML SUBCUT SCH ×4 (06:19→21:46)
[2020-02-09 08:00] VITALS: BP 125/84
[2020-02-09] MEDS: ASPIRIN 81MG EC TABLET PO SCH (08:51)
[2020-02-09] MEDS: ENOXAPARIN 30MG/0.3ML SYR SUBCUT SCH ×2 (08:51→21:26)
[2020-02-09] MEDS: GUAIFENESIN 600MG ER TABLET PO SCH ×2 (08:51→21:27)
[2020-02-09 10:16] LABS: BASOPHILS % 0.6 % (0.0-2.0); EOSINOPHILS % 3.3 % (0.0-5.0); HEMATOCRIT. 27.8 % (36.0-48.0); HEMOGLOBIN. 9.2 g/dL (12.0-16.0); LYMPHOCYTES % 13.3 % (20.0-50.0); MEAN CORPUSCULAR HEMOGLOBIN 25.1 pg (28.0-32.0); MEAN CORPUSCULAR VOLUME 75.9 fL (81.0-99.0); MEAN PLATELET VOLUME 7.6 fl (7.4-10.4); MONOCYTES % 4.4 % (2.0-8.0); NEUTROPHILS % 78.4 % (40.0-76.0); PLATELET 360 x1000/uL (130-400); RED BLOOD CELL COUNT 3.66 mill/uL (4.2-5.4); RED CELL DISTRIBUTION WIDTH 16.9 % (11.6-14.6)
[2020-02-09 12:00] VITALS: BP 109/64
[2020-02-09] MEDS: PIPERACILLIN/TAZOBACTAM 2.25 G in DEXTROSE 5% WATER 50 ML IV SCH (12:00)
[2020-02-09 16:00] VITALS: BP 123/69
[2020-02-09 20:23] VITALS: BP 132/72
[2020-02-10 00:37] VITALS: BP 147/65
[2020-02-10] MEDS: PIPERACILLIN/TAZOBACTAM 3.375 G in DEXT 5% WATER 100 ML IV SCH ×4 (01:07→17:01)
[2020-02-10 04:10] VITALS: BP 153/69
[2020-02-10] MEDS: BLOOD SUGAR DIAGNOSTIC STRIP TEST SCH ×4 (05:40→21:29)
[2020-02-10] MEDS: INSULIN LISPRO (HIGH DOSE) 100 UNITS/ML SUBCUT SCH ×4 (06:22→21:42)
[2020-02-10 07:24] LABS: BASOPHILS % 0.5 % (0.0-2.0); EOSINOPHILS % 4.2 % (0.0-5.0); HEMOGLOBIN. 8.9 g/dL (12.0-16.0); MEAN CORPUSCULAR HEMOGLOBIN 24.9 pg (28.0-32.0); MEAN CORPUSCULAR VOLUME 75.7 fL (81.0-99.0); MEAN PLATELET VOLUME 8.1 fl (7.4-10.4); MONOCYTES % 4.2 % (2.0-8.0); NEUTROPHILS % 81.1 % (40.0-76.0); PLATELET 326 x1000/uL (130-400); RED BLOOD CELL COUNT 3.56 mill/uL (4.2-5.4)
[2020-02-10 08:00] VITALS: BP 118/59
[2020-02-10] MEDS: GUAIFENESIN 600MG ER TABLET PO SCH ×2 (09:45→21:36)
[2020-02-10] MEDS: ENOXAPARIN 30MG/0.3ML SYR SUBCUT SCH ×2 (09:45→21:36)
[2020-02-10] MEDS: ASPIRIN 81MG EC TABLET PO SCH (09:45)
[2020-02-10 12:00] VITALS: BP 136/73
[2020-02-10 16:00] VITALS: BP 149/84
[2020-02-10] MEDS: FLUCONAZOLE 100MG TABLET PO SCH (16:27)
[2020-02-10 20:00] VITALS: BP 144/72
[2020-02-11] VITALS: BP 131/71
[2020-02-11] MEDS: PIPERACILLIN/TAZOBACTAM 3.375 G in DEXT 5% WATER 100 ML IV SCH ×3 (00:33→12:41)
[2020-02-11 04:00] VITALS: BP 163/69
[2020-02-11 04:30] VITALS: BP 158/59
[2020-02-11] MEDS: BLOOD SUGAR DIAGNOSTIC STRIP TEST SCH (06:16)
[2020-02-11] MEDS: INSULIN LISPRO (HIGH DOSE) 100 UNITS/ML SUBCUT SCH ×2 (06:25→12:48)
[2020-02-11 07:00] LABS: BASOPHILS % 0.6 % (0.0-2.0); EOSINOPHILS % 3.9 % (0.0-5.0); HEMATOCRIT. 25.8 % (36.0-48.0); HEMOGLOBIN. 8.7 g/dL (12.0-16.0); LYMPHOCYTES % 17.3 % (20.0-50.0); MEAN CORPUSCULAR HEMOGLOBIN 25.3 pg (28.0-32.0); MEAN PLATELET VOLUME 7.7 fl (7.4-10.4); MONOCYTES % 5.4 % (2.0-8.0); NEUTROPHILS % 72.8 % (40.0-76.0); PLATELET 319 x1000/uL (130-400); RED BLOOD CELL COUNT 3.44 mill/uL (4.2-5.4); RED CELL DISTRIBUTION WIDTH 16.8 % (11.6-14.6)
[2020-02-11 07:38] LABS: CHLORIDE 102 mEq/L (98-107)
[2020-02-11 08:00] VITALS: BP 115/72
[2020-02-11] MEDS: FLUCONAZOLE 100MG TABLET PO SCH (09:27)
[2020-02-11] MEDS: GUAIFENESIN 600MG ER TABLET PO SCH (09:27)
[2020-02-11] MEDS: ENOXAPARIN 30MG/0.3ML SYR SUBCUT SCH (09:27)
[2020-02-11] MEDS: ASPIRIN 81MG EC TABLET PO SCH (09:28)
[2020-02-11 12:00] VITALS: BP 199/84
[2020-02-11 13:04] VITALS: BP 199/84
== END 2020-02-11 16:55 | disposition home or self-care (01) | DRG 469 ==
LOC: ER 17:56 → 7EST 23:20 → EDBEDREQ 23:24 → CANRESERV 02-06 08:11 → ENRESERV 02-06 08:11 → 5WST 02-07 02:07
PROVIDERS: ADMIT Internal Medicine; ATTEND Internal Medicine
DX: N17.9 Acute kidney failure, unspecified (principal); E11.22 Type 2 diabetes mellitus with diabetic chronic kidney disease; I95.9 Hypotension, unspecified; E44.0 Moderate protein-calorie malnutrition; E11.65 Type 2 diabetes mellitus with hyperglycemia; E87.1 Hypo-osmolality and hyponatremia; B37.49 Other urogenital candidiasis; E86.0 Dehydration; E87.6 Hypokalemia; F17.200 Nicotine dependence, unspecified, uncomplicated; I12.9 Hypertensive chronic kidney disease with stage 1 through stage 4 chronic kidney disease, or unspecified chronic kidney disease; L02.214 Cutaneous abscess of groin; N18.9 Chronic kidney disease, unspecified; D72.810 Lymphocytopenia; E66.9 Obesity, unspecified; D64.9 Anemia, unspecified; Z20.828 Contact with and (suspected) exposure to other viral communicable diseases; Z87.39 Personal history of other diseases of the musculoskeletal system and connective tissue; Z79.4 Long term (current) use of insulin; Z79.82 Long term (current) use of aspirin; Z79.899 Other long term (current) drug therapy; Z71.6 Tobacco abuse counseling; Z68.41 Body mass index [BMI] 40.0-44.9, adult
CPT/HCPCS: 36415; 71045; 80048; 80053; 80061; 81003; 82550; 82962; 83605; 83880; 84439; 84443; 84484; 85025; 87070; 87106; 87635; 87804; 93005; 97162; 99285; J1650; J1815; J2543; J3370; J7030; J7040; J7060

== ENCOUNTER 2020-02-18 15:15 | Inpatient (IN) | payer OTHER ==
[~2020-02-18] VITALS: Ht 172.7 cm; Wt 113.4 kg
[2020-02-18] MEDS ORDERED: IBUPROFEN 600MG TABLET PO ONE (17:00)
[2020-02-18 17:37] LABS: BASOPHILS % 0.6 % (0.0-2.0); EOSINOPHILS % 1.7 % (0.0-5.0); HEMATOCRIT. 29.8 % (36.0-48.0); HEMOGLOBIN. 9.8 g/dL (12.0-16.0); LYMPHOCYTES % 9.9 % (20.0-50.0); MEAN CORPUSCULAR HEMOGLOBIN 24.9 pg (28.0-32.0); MEAN CORPUSCULAR VOLUME 76.1 fL (81.0-99.0); MEAN PLATELET VOLUME 8.1 fl (7.4-10.4); MONOCYTES % 3.7 % (2.0-8.0); NEUTROPHILS % 84.1 % (40.0-76.0); PLATELET 551 x1000/uL (130-400); RED BLOOD CELL COUNT 3.92 mill/uL (4.2-5.4); RED CELL DISTRIBUTION WIDTH 17.8 % (11.6-14.6)
[2020-02-18 17:50] LABS: CHLORIDE 100 mEq/L (98-107)
[2020-02-18] MEDS ORDERED: SODIUM CHLORIDE 0.9% 1,000 ML IV ONE (18:17)
[2020-02-18 18:18] LABS: CLARITY URINE CLOUDY (CLEAR); COLOR URINE YELLOW (YELLOW); KETONES URINE TRACE (NEGATIVE); LEUKOCYTE ESTERASE URINE 3+ (NEGATIVE); NITRITE URINE NEGATIVE (NEGATIVE); OCCULT BLOOD URINE 2+ (NEGATIVE); PROTEIN URINE 3+ (NEGATIVE); SPECIFIC GRAVITY URINE 1.018 (1.005-1.030)
[2020-02-18] MEDS ORDERED: HYDROCODONE/ACETAMINOPHEN 5/325MG TABLET PO ONE (19:45)
[2020-02-18] MEDS ORDERED: ONDANSETRON 4MG ODT PO ONE (19:45)
[2020-02-18] MEDS: CEFTRIAXONE 1 G PREMIX 50 ML IV NR ×2 (20:30→23:52)
[2020-02-19] VITALS (7 sets, daily range): BP systolic 100–148; BP diastolic 57–84
[2020-02-19] MEDS ORDERED: INSULIN REGULAR (HUMULIN R) 300UNITS/3ML SUBCUT ONE
[2020-02-19] MEDS ORDERED: FURO-152 MT (04:12)
[2020-02-19] MEDS ORDERED: GABA-529 PO (04:12)
[2020-02-19] MEDS ORDERED: AMLO2.5T45 PO (04:12)
[2020-02-19] MEDS ORDERED: ONDANSETRON HCL 4MG/2ML INJ IV PRN (04:45)
[2020-02-19] MEDS ORDERED: DEXTROSE 50% WATER 50ML SYRINGE IV PRN ×2 (04:45)
[2020-02-19] MEDS ORDERED: SODIUM POLYSTYRENE SULFONATE 15 G/60 ML BOT PO NR ×2 (06:00→10:00)
[2020-02-19] MEDS: INSULIN LISPRO 100 UNITS/ML SUBCUT SCH ×5 (06:29→21:32)
[2020-02-19] MEDS ORDERED: BLOOD SUGAR DIAGNOSTIC STRIP TEST SCH (07:20)
[2020-02-19] MEDS: BLOOD SUGAR DIAGNOSTIC STRIP TEST SCH ×4 (07:20→21:20)
[2020-02-19 08:13] LABS: CHLORIDE 104 mEq/L (98-107)
[2020-02-19 08:20] LABS: LDL CHOLESTEROL 52 mg/dL (5-100)
[2020-02-19 08:22] LABS: HDL CHOLESTEROL 81 mg/dL (40-59)
[2020-02-19 08:26] LABS: BASOPHILS % 0.6 % (0.0-2.0); EOSINOPHILS % 3.1 % (0.0-5.0); HEMATOCRIT. 28.4 % (36.0-48.0); HEMOGLOBIN. 9.5 g/dL (12.0-16.0); LYMPHOCYTES % 19.3 % (20.0-50.0); MEAN CORPUSCULAR HEMOGLOBIN 25.3 pg (28.0-32.0); MEAN PLATELET VOLUME 8.1 fl (7.4-10.4); MONOCYTES % 4.5 % (2.0-8.0); NEUTROPHILS % 72.5 % (40.0-76.0); PLATELET 522 x1000/uL (130-400); RED BLOOD CELL COUNT 3.74 mill/uL (4.2-5.4); RED CELL DISTRIBUTION WIDTH 17.8 % (11.6-14.6)
[2020-02-19] MEDS: GABAPENTIN 300MG CAPSULE PO SCH ×3 (08:30→18:01)
[2020-02-19] MEDS: LISINOPRIL 40MG TABLET PO SCH (08:31)
[2020-02-19] MEDS: AMLODIPINE 10MG TABLET PO SCH (08:31)
[2020-02-19] MEDS: INSULIN GLARGINE UD 100 UNITS/ML SYR SUBCUT SCH ×2 (10:00→22:00)
[2020-02-19] MEDS: MORPHINE SULFATE 2 MG/ML CPJ (NOT FOR IM USE) IV PRN ×2 (14:38→21:36)
[2020-02-19] MEDS: ATORVASTATIN CALCIUM 20MG TABLET PO SCH (20:35)
[2020-02-19] MEDS: CEFTRIAXONE 1 G PREMIX 50 ML IV SCH (20:36)
[2020-02-19 22:10] LABS: C REACTIVE PROTEIN CARDIAC 4.3 mg/L (0.00-3.00)
[2020-02-19] MEDS ORDERED: LINEZOLID 600 MG PREMIX 300 ML IV SCH (23:00)
[2020-02-20] VITALS: BP 107/59
[2020-02-20 04:00] VITALS: BP 115/58
[2020-02-20 06:03] LABS: BASOPHILS % 0.7 % (0.0-2.0); EOSINOPHILS % 3.9 % (0.0-5.0); HEMATOCRIT. 25.5 % (36.0-48.0); HEMOGLOBIN. 8.6 g/dL (12.0-16.0); LYMPHOCYTES % 19.6 % (20.0-50.0); MEAN CORPUSCULAR HEMOGLOBIN 25.7 pg (28.0-32.0); MEAN PLATELET VOLUME 8.1 fl (7.4-10.4); MONOCYTES % 5.8 % (2.0-8.0); PLATELET 435 x1000/uL (130-400); RED BLOOD CELL COUNT 3.36 mill/uL (4.2-5.4); RED CELL DISTRIBUTION WIDTH 17.8 % (11.6-14.6)
[2020-02-20] MEDS: LINEZOLID 600 MG PREMIX 300 ML IV SCH ×2 (06:36→17:30)
[2020-02-20] MEDS: BLOOD SUGAR DIAGNOSTIC STRIP TEST SCH ×4 (07:00→21:28)
[2020-02-20] MEDS: INSULIN LISPRO 100 UNITS/ML SUBCUT SCH ×5 (07:20→21:35)
[2020-02-20 08:00] VITALS: BP 136/72
[2020-02-20] MEDS: GABAPENTIN 300MG CAPSULE PO SCH ×3 (09:32→17:26)
[2020-02-20] MEDS: AMLODIPINE 10MG TABLET PO SCH (09:32)
[2020-02-20] MEDS: LISINOPRIL 40MG TABLET PO SCH (09:32)
[2020-02-20] MEDS: INSULIN GLARGINE UD 100 UNITS/ML SYR SUBCUT SCH ×2 (10:58→22:31)
[2020-02-20 12:00] VITALS: BP 127/64
[2020-02-20] MEDS: MORPHINE SULFATE 2 MG/ML CPJ (NOT FOR IM USE) IV PRN ×2 (12:23→21:29)
[2020-02-20] MEDS ORDERED: SODIUM POLYSTYRENE SULFONATE 15 G/60 ML BOT PO NR (14:00)
[2020-02-20 16:00] VITALS: BP 117/66
[2020-02-20 20:00] VITALS: BP 116/67
[2020-02-20] MEDS: ATORVASTATIN CALCIUM 20MG TABLET PO SCH (21:16)
[2020-02-20] MEDS: CEFTRIAXONE 1 G PREMIX 50 ML IV SCH (21:16)
[2020-02-21] VITALS: BP 140/69
[2020-02-21 04:00] VITALS: BP 126/76
[2020-02-21] MEDS: LINEZOLID 600 MG PREMIX 300 ML IV SCH (05:32)
[2020-02-21] MEDS: BLOOD SUGAR DIAGNOSTIC STRIP TEST SCH ×2 (06:50→12:58)
[2020-02-21 08:00] VITALS: BP 136/74
[2020-02-21] MEDS ORDERED: DOXY100T2 MT (08:26)
[2020-02-21] MEDS ORDERED: AMOX-424 MT (08:26)
[2020-02-21] MEDS: INSULIN LISPRO 100 UNITS/ML SUBCUT SCH ×3 (08:38→12:50)
[2020-02-21] MEDS: GABAPENTIN 300MG CAPSULE PO SCH (08:39)
[2020-02-21] MEDS: LISINOPRIL 40MG TABLET PO SCH (08:40)
[2020-02-21] MEDS: AMLODIPINE 10MG TABLET PO SCH (08:40)
[2020-02-21] MEDS: MORPHINE SULFATE 2 MG/ML CPJ (NOT FOR IM USE) IV PRN (09:11)
[2020-02-21] MEDS: INSULIN GLARGINE UD 100 UNITS/ML SYR SUBCUT SCH (10:00)
[2020-02-21 12:00] VITALS: BP 118/76
[2020-02-21 15:04] VITALS: BP 110/70
[2020-02-21] MEDS ORDERED: LINEZOLID 600MG TABLET PO SCH (17:00)
== END 2020-02-21 15:34 | disposition home health service (06) | DRG 720 ==
LOC: ER 15:15 → 6EST 22:22 → EDBEDREQTM 22:25 → EDBEDREQ 22:25 → ENRESERV 23:16
PROVIDERS: ADMIT Internal Medicine; ATTEND Internal Medicine
DX: A41.9 Sepsis, unspecified organism (principal); N17.9 Acute kidney failure, unspecified; E11.22 Type 2 diabetes mellitus with diabetic chronic kidney disease; E44.1 Mild protein-calorie malnutrition; E66.9 Obesity, unspecified; N18.9 Chronic kidney disease, unspecified; I12.9 Hypertensive chronic kidney disease with stage 1 through stage 4 chronic kidney disease, or unspecified chronic kidney disease; E87.1 Hypo-osmolality and hyponatremia; N12 Tubulo-interstitial nephritis, not specified as acute or chronic; E87.5 Hyperkalemia; L02.416 Cutaneous abscess of left lower limb; L02.215 Cutaneous abscess of perineum; D63.8 Anemia in other chronic diseases classified elsewhere; Z68.38 Body mass index [BMI] 38.0-38.9, adult; Z79.899 Other long term (current) drug therapy; Z79.82 Long term (current) use of aspirin; Z71.89 Other specified counseling
CPT/HCPCS: 36415; 73700; 74176; 76700; 80048; 80053; 80061; 81003; 82550; 82962; 83036; 84145; 85025; 85651; 86141; 87070; 99285; J0696; J1815; J2020; J2270; J7030; Q0162

== ENCOUNTER 2023-03-11 14:10 | Emergency (ER) | payer MEDICAID, OTHER ==
[~2023-03-11] VITALS: Ht 172.7 cm; Wt 136.0 kg
[~2023-03-11 14:10] MED LIST changes: +AMLO2.5T45 PO; +AMOX-424 MT; +DOXY100T2 MT; +FURO-152 MT; +GABA-529 PO; -HYDR25TA PO; +LISI40TA13 PO; -LISI40TA4 PO
[2023-03-11 14:49] LABS: BASOPHILS % 0.6 % (0.0-2.0); HEMATOCRIT. 27.4 % (36.0-48.0); HEMOGLOBIN. 9.3 g/dL (12.0-16.0); LYMPHOCYTES % 16.6 % (20.0-50.0); MEAN CORPUSCULAR HEMOGLOBIN 25.6 pg (28.0-32.0); MEAN CORPUSCULAR VOLUME 75.9 fL (81.0-99.0); MEAN PLATELET VOLUME 8.2 fl (7.4-10.4); MONOCYTES % 5.7 % (2.0-8.0); NEUTROPHILS % 72.1 % (40.0-76.0); PLATELET 297 x1000/uL (130-400); RED BLOOD CELL COUNT 3.61 mill/uL (4.2-5.4); RED CELL DISTRIBUTION WIDTH 15.6 % (11.6-14.6)
[2023-03-11 14:56] LABS: HCG SCREEN NEGATIVE
[2023-03-11 15:23] LABS: CHLORIDE 112 mEq/L (98-107)
[2023-03-11 15:34] LABS: PHOSPHORUS 3.8 mg/dL (2.5-4.9)
[2023-03-11 16:26] LABS: CLARITY URINE CLEAR (CLEAR); COLOR URINE YELLOW (YELLOW); KETONES URINE NEGATIVE (NEGATIVE); LEUKOCYTE ESTERASE URINE NEGATIVE (NEGATIVE); NITRITE URINE NEGATIVE (NEGATIVE); OCCULT BLOOD URINE TRACE (NEGATIVE); PROTEIN URINE 3+ (NEGATIVE); UROBILINOGEN URINE 0.2 E.U./dL (0.2-1.0)
[2023-03-11 17:16] VITALS: BP 138/90
== END 2023-03-11 17:17 | disposition home or self-care (01) ==
LOC: ER 14:10
DX: R07.89 Other chest pain (principal); E11.9 Type 2 diabetes mellitus without complications; I10 Essential (primary) hypertension; Z79.899 Other long term (current) drug therapy
CPT/HCPCS: 36415; 71045; 80053; 81003; 83735; 83880; 84100; 84484; 84703; 85025; 93005; 99285; Z7610

== ENCOUNTER 2023-06-14 14:08 | Emergency (ER) | payer MEDICAID, OTHER ==
[2023-06-14 14:15] VITALS: PULSE 99
== END 2023-06-14 18:09 | disposition left against medical advice (07) ==
LOC: ER 14:08
DX: Z53.21 Procedure and treatment not carried out due to patient leaving prior to being seen by health care provider (principal)
CPT/HCPCS: 99281

== ENCOUNTER 2023-10-14 14:12 | Emergency (ER) | payer MEDICAID, OTHER ==
[~2023-10-14] VITALS: Ht 175.3 cm; Wt 108.0 kg
[2023-10-14 14:54] VITALS: O2SAT 99
[2023-10-14 15:56] LABS: BASOPHILS % 0.3 % (0.0-2.0); DIFFERENTIAL COMMENT 0; EOSINOPHILS % 3.5 % (0.0-5.0); HEMOGLOBIN. 8.2 g/dL (12.0-16.0); LYMPHOCYTES % 13.4 % (20.0-50.0); MEAN CORPUSCULAR HEMOGLOBIN 25.1 pg (28.0-32.0); MEAN CORPUSCULAR VOLUME 76.2 fL (81.0-99.0); MEAN PLATELET VOLUME 8.4 fl (7.4-10.4); MONOCYTES % 5.7 % (2.0-8.0); NEUTROPHILS % 77.1 % (40.0-76.0); PLATELET 295 x1000/uL (130-400); RED BLOOD CELL COUNT 3.28 mill/uL (4.2-5.4); RED CELL DISTRIBUTION WIDTH 16.7 % (11.6-14.6)
[2023-10-14 16:23] LABS: ALANINE AMINOTRANSFERASE < 7 IU/L (10-49); ALBUMIN 3.7 g/dL (3.2-4.8); ASPARTATE AMINOTRANSFERASE 8 IU/L (<34); BILIRUBIN TOTAL 0.4 mg/dL (0.1-1.0); CALCIUM 9.2 mg/dL (8.7-10.4); CARBON DIOXIDE 22 mEq/L (21-32); CHLORIDE 105 mEq/L (98-107); CREATININE 2.8 mg/dL (0.6-1.0); GLUCOSE 256 mg/dL (70-105); POTASSIUM 4.5 mEq/L (3.5-5.1); PROTEIN TOTAL 7.3 g/dL (6.0-8.3); SODIUM 138 mEq/L (136-145); UREA NITROGEN BLOOD 42 mg/dL (9-23)
[2023-10-14 18:20] LABS: CLARITY URINE CLOUDY (CLEAR); COLOR URINE YELLOW (YELLOW); GLUCOSE URINE 2+ (NEGATIVE); KETONES URINE NEGATIVE (NEGATIVE); LEUKOCYTE ESTERASE URINE NEGATIVE (NEGATIVE); NITRITE URINE NEGATIVE (NEGATIVE); OCCULT BLOOD URINE TRACE (NEGATIVE); PH URINE 6.5 (4.5-8.0); PROTEIN URINE 3+ (NEGATIVE); SPECIFIC GRAVITY URINE 1.014 (1.005-1.030); UROBILINOGEN URINE 0.2 E.U./dL (0.2-1.0)
[2023-10-14 18:45] VITALS: BP 192/89; PULSE 75; RESP 23; TEMP 98.2
[2023-10-14] MEDS ORDERED: SULFAMETHOXAZOLE/TRIMETHOPRIM 800/160MG TABLET PO ONE (19:00)
[2023-10-14] MEDS ORDERED: LIDOCAINE HCL/EPINEPHRINE 1%-EPI 1:100,000 20 ML VIAL INFIL ONE (19:00)
[2023-10-14 19:12] LABS: BACTERIA URINE 1+; RBC URINE 0-2 /hpf (0-2); SQUAMOUS EPITHELIAL CELL URINE 1+ /lpf (RARE/1+); WBC URINE 0-2 /hpf (0-2)
[2023-10-15] MEDS ORDERED: LIDOCAINE HCL/PF 1% 10 MG/ML 5ML VIAL INFIL ONE (00:30)
== END 2023-10-15 01:59 | disposition home or self-care (01) ==
LOC: ER 14:12
DX: L02.412 Cutaneous abscess of left axilla (principal); E11.9 Type 2 diabetes mellitus without complications; I10 Essential (primary) hypertension; Z88.8 Allergy status to other drugs, medicaments and biological substances; Z79.899 Other long term (current) drug therapy; Z79.82 Long term (current) use of aspirin
CPT/HCPCS: 99284; 10060; 80053; 81003; 81025; 85025; 36415; J3490

== ENCOUNTER 2023-11-19 05:05 | Emergency (ER) | payer MEDICAID, OTHER ==
[~2023-11-19] VITALS: Ht 172.7 cm; Wt 133.0 kg
[2023-11-19 05:17] VITALS: O2SAT 96
[2023-11-19] MEDS ORDERED: HYDROCODONE/ACETAMINOPHEN 5/325MG TABLET PO ONE (09:15)
[2023-11-19] MEDS ORDERED: CEPHALEXIN 250MG CAPSULE PO ONE (09:15)
[2023-11-19] MEDS ORDERED: SULFAMETHOXAZOLE/TRIMETHOPRIM 800/160MG TABLET PO ONE (09:15)
[2023-11-19] MEDS ORDERED: SULF1TAB48 MT (09:55)
[2023-11-19] MEDS ORDERED: CEPH500T MT (09:55)
[2023-11-19] MEDS ORDERED: SULFAMETHOXAZOLE/TRIMETHOPRIM 800/160MG TABLET PO NR (10:15)
[2023-11-19 10:21] VITALS: BP 180/82; PULSE 79; RESP 16; TEMP 98.4
== END 2023-11-19 10:25 | disposition home or self-care (01) ==
LOC: ER 05:35
DX: L02.412 Cutaneous abscess of left axilla (principal); L73.2 Hidradenitis suppurativa; I10 Essential (primary) hypertension; E11.9 Type 2 diabetes mellitus without complications; Z91.048 Other nonmedicinal substance allergy status; Z79.899 Other long term (current) drug therapy; Z79.82 Long term (current) use of aspirin
CPT/HCPCS: 81025; 10060; 99284; Z7610 ×3